=== PATIENT | male | born 1980 | race Caucasian/White ===

== ENCOUNTER 2019-12-21 18:16 | Emergency (ER) | payer OTHER, SELFPAY ==
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
[2019-12-21 18:13] VITALS: BP 141/90; PULSE 95; RESP 16; TEMP 37.1; O2SAT 99
--- NOTE | 2019-12-21 18:25 | ECG_ITS ---
Measurements Intervals [place] Rate: 88 P: 45 SD: 118 QRS: 13 QRSD: 98 T: -8 QT: 344 QTc: 416 Interpretive Statements SINUS RHYTHM WITH SHORT SD INTERVAL BORDERLINE ECG Electronically Signed On 12-22-2019 7:10:43 CDT by Robin Carey D.O.
[2019-12-21 18:44] VITALS: BP 141/85; PULSE 88; RESP 12; O2SAT 97
--- NOTE | 2019-12-21 18:44 | PC.NURSE ---
EDP Rip Miller PA-C at bedside discussing POC.
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
[2019-12-21] MEDS: SODIUM CHLORIDE 0.9% IV 1,000 ML 999 ML IV CONT ×2 (18:59→19:58)
--- NOTE | 2019-12-21 19:15 | PC.NURSE ---
Report taken from JUN Scott. Patient aox4, only complaint at this time is a right sided headache. Paul [facility] aware.
[2019-12-21 19:19] VITALS: BP 130/81; PULSE 83; RESP 16; O2SAT 97
--- NOTE | 2019-12-21 19:28 | PC.NURSE ---
Patient arrived back to room from BREANNA. JESUSITA Miller into room after speaking with Nguyen. Additional scans and blood work ordered. Patient back to radiology.
[2019-12-21 19:50] LABS: Estimated CRCL calculation 74 ml/min; Estimated Glomerular Filt Rate > 60
[2019-12-21 20:30] LABS: Basophils Absolute Auto 0.1 K/mm3 (0.0-0.1); Basophils Percent Auto 0.5 % (0.2-1.2); Eosinophils Absolute Auto 0.1 K/mm3 (0-0.3); Eosinophils Percent Auto 0.9 % (0-4.4); Hematocrit 43.1 % (42.0-52.0); Hemoglobin 14.6 g/dL (14.0-18.0); Immature Granulocyte Absolute 0.11 K/mm3 (0.00-0.031); Immature Granulocyte Percent A 0.7 % (0-0.5); Lymphocytes Absolute Auto 2.54 K/mm3 (0.9-3.2); Lymphocytes Percent Auto 16.3 % (18.3-44.2); Mean Corpuscular HGB Conc 33.9 g/dl (32-36); Mean Corpuscular Hemoglobin 29.7 pg (26-34); Mean Corpuscular Volume 87.8 fl (80-100); Monocytes Absolute Auto 0.8 K/mm3 (0.1-0.6); Monocytes Percent Auto 4.9 % (2.6-8.5); Neutrophils Percent Auto 76.7 % (45.5-73.1); Platelet Count Result 279 k/mm3 (150-375); Red Blood Count 4.91 M/mm3 (4.6-6.20); Red Cell Distribution Width 12.9 % (11.5-14.5); White Blood Count 15.6 K/mm3 (4.5-10.0)
[2019-12-21] MEDS: KETOROLAC 30 MG/ML VIAL (*BKC) IV PUSH (20:35)
[2019-12-21 20:39] LABS: INR 1.1; Prothrombin Time 13.4 Seconds (11.1-14.7)
[2019-12-21 20:42] LABS: Alanine Aminotransferase 16 U/L (4-50); Albumin Level 3.8 g/dL (3.5-5.1); Alkaline Phosphatase 78 U/L (38-126); Aspartate Amino Transferase 20 U/L (17-59); Bilirubin,Total 0.2 mg/dL (0.2-1.3); Blood Urea Nitrogen 17 mg/dL (9-20); Calcium 8.1 mg/dL (8.4-10.2); Carbon Dioxide 24 mmol/L (22-30); Chloride 107 mmol/L (98-107); Estimated CRCL calculation 81 ml/min; Estimated Glomerular Filt Rate > 60; Glucose 90 mg/dL (75-110); Potassium 3.9 mmol/L (3.4-5.0); Sodium 137 mmol/L (137-145)
[2019-12-21 20:43] LABS: Add Urine Microscopic? NO; Appearance Urine Clear (Clear); Bilirubin Urine Negative (Negative); Blood Urine Negative (Negative); Color Urine Straw (Yellow); Glucose Urine UA Negative (Negative); Ketones Urine Negative (Negative); Leukocyte Esterase Ur Negative LEU/UL (Negative); Nitrate Urine Negative (Negative); Protein Urine Negative (Negative); Specific Grav Ur 1.006 (1.001-1.035); Urobilinogen Urine Negative mg/dL (<2.0)
[2019-12-21 21:11] VITALS: BP 117/77; PULSE 81; RESP 18; O2SAT 98
== END 2019-12-21 21:12 | disposition short-term general hospital (02) ==
PROVIDERS: Emergency Medicine Emergency Medical Services; Emergency Provider Emergency Medicine; PCP Family Medicine
DX: S09.90XA Unspecified injury of head, initial encounter (principal); S29.9XXA Unspecified injury of thorax, initial encounter; S39.91XA Unspecified injury of abdomen, initial encounter; V43.52XA Car driver injured in collision with other type car in traffic accident, initial encounter
CPT/HCPCS: 36415; 70450; 71045; 71260; 72125; 72170; 74177; 80053; 81003; 85025; 85610; 85730; 93005; 96361; 96365; 96375; 99285; J0131; J1885; J3360; J7030; Q9967

== ENCOUNTER 2022-11-08 13:46 | Emergency (ER) | payer OTHER, SELFPAY ==
[2022-11-08 13:59] VITALS: BP 124/78; PULSE 95; RESP 18; TEMP 36.9; O2SAT 100
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
== END 2022-11-08 14:35 | disposition home or self-care (01) ==
PROVIDERS: Emergency Provider Nurse Practitioner Family; PCP Family Medicine
DX: L03.811 Cellulitis of head [any part, except face] (principal); F17.200 Nicotine dependence, unspecified, uncomplicated
CPT/HCPCS: 99213; G0463

== ENCOUNTER 2024-05-20 14:00 | Emergency (ER) | payer OTHER, SELFPAY ==
--- NOTE | 2024-05-20 14:30 | ED_ITS ---
HPI - Skin/Abscess/Foreign Bdy General Chief complaint: Skin/Abscess/Foreign Body Stated complaint: spider bite Time Seen by Provider: 05/20/24 15:09 Source: patient, RN notes reviewed and old records reviewed Mode of arrival: ambulatory Limitations: no limitations History of Present Illness HPI narrative: 43-year-old male presents to the [facility] with redness, inflammation to the left mid forearm since yesterday. Patient reports that he was cleaning out his garage on Thursday, noticed small red irritated area yesterday, has doubled in size since. Related Data Home Medications Medication Instructions Recorded Confirmed rosuvastatin 10 mg tablet 10 mg PO DAILY 05/20/24 05/20/24 Allergies Allergy/AdvReac Type Severity Reaction Status Date / Time No Known Allergies Allergy Verified 05/20/24 15:11 Review of Systems Review of Systems: All systems reviewed & are unremarkable except as noted in HPI and below Constitutional: Constitutional: Reports no additional constitutional complaints ENT: Reports system reviewed and no additional complaints, except as documented Cardiovascular: Cardiovascular: Reports no additional cardiovascular complaints, Denies chest pain and Denies dyspnea Respiratory: Respiratory: Reports no additional respiratory complaints, Denies chest congestion, Denies cough and Denies dyspnea Gastrointestinal: Gastrointestinal: Reports no additional gastrointestinal complaints, Denies abdominal pain, Denies nausea and Denies vomiting Musculoskeletal: Musculoskeletal: Reports no additional musculoskeletal complaints Integumentary/Breasts: Skin/Breast: Reports as per HPI [facility] Past Medical History Medical History (Updated 05/21/24 @ 14:43 by Luna Rolon APRN) Brain cyst Surgical History Surgical History History of brain surgery Family History Family History Father Malignant neoplasm of prostate Mother No problems noted. Other Hypertension Social History Social History Smoking status: Current every day smoker Alcohol intake: current Substance use: never Substance use type: does not use Lack of Transportation: No Lack of Food: Never True Current Housing: I Have Housing Concerned About Future Housing: No Difficulty Paying Gas/Electric Bills: No Difficulty Paying for Meds: No Currently Unemployed: No Education: High School Diploma/GED Difficulty w/ Childcare or Family Care: No Living arrangements: with roommate(s) Occupation/Education: occupation Gender identity (if verbalized by the patient): Male Sexual Orientation (if Verbalized by the Patient): Straight or Heterosexual Spiritual care concerns: No Comments At the time of my signature, I reviewed and agree with the nursing past medical, surgical, social, and family history. There is no relevant family history pertinent to the patient complaint. Exam Const: General: cooperative, healthy appearing, comfortable, no acute distress, well developed, alert and well nourished Nutritional Appearance: well nourished Orientation/consciousness: patient oriented x3 Limitations: no limitations HENMT: Head: normal to inspection Ears: hearing grossly normal bilaterally and external ears normal Face/Nose/Sinus: Normal external nose present, normal facial exam and face symmetric Face and sinus: normal facial exam and face symmetric Eyes: General: appearance normal, both eyes and all related structures Alignment and Position: alignment normal Periorbital: periorbital findings normal Neck: Neck: normal visual inspection, full ROM, no lymphadenopathy and no meningeal signs Chest: Chest palpation & inspection: normal inspection of the chest Resp: Effort & Inspection: normal respiratory effort and able to speak in complete sentences Cardio: Rate: regular rate Skin: General skin exam: normal color and no rashes or lesions noted Lesions: no lesions Rashes: no rashes Other: Left scabbed over area center 0.5 cm by 0.5 cm, erythema extended to 3 x 2.5 cm. Area is mildly swollen. Neuro: General: patient oriented x3, gait normal, tone normal, moves all extremities and no meningeal signs Cognition (Neuro): normal cognition Speech: normal speech Gait exam (Neuro): Normal gait present Extrem: General: normal to inspection, full ROM, capillary refill normal and normal gait Left upper extremity: elbow/forearm swelling (Mid forearm, erythema), wrist normal to inspection and normal ROM and hand normal to inspection and normal capillary refill Psych: Appearance: grossly normal and well kempt Mental Status: mental status grossly normal Speech and movement: Normal speech and movement present and Clear speech present Affect: normal affect Attitude: cooperative Course Course Level of Care: Express Care Visit Vital Signs Vital signs: Vital Signs Temperature 97.5 F L 05/20/24 14:32 Pulse Rate 95 05/20/24 14:32 Respiratory Rate 15 05/20/24 14:32 Blood Pressure 139/94 H 05/20/24 14:32 Pulse Oximetry 98 05/20/24 14:32 Oxygen Delivery Room Air 05/20/24 14:32 Temperature 97.5 F L 05/20/24 14:32 Pulse Rate 95 05/20/24 14:32 Respiratory Rate 15 05/20/24 14:32 Blood Pressure 139/94 H 05/20/24 14:32 Pulse Oximetry 98 05/20/24 14:32 Oxygen Delivery Room Air 05/20/24 14:32 Reviewed MDM - Skin/Abscess/Foreign Bdy MDM Narrative Medical decision making narrative: Patient sitting comfortably in exam room. Nontoxic, vitals stable. Patient presents with erythema to the forearm Exam consistent with cellulitis. No streaking. Patient is nontoxic Patient appropriate for outpatient treatment with antibiotics and close follow- up Discussed signs and symptoms ago the emergency room which he verbalized understanding. Discharge instructions reviewed with patient, as well as provided in writing per nursing staff. The instructions also include specific and strict return/GO TO THE ER as well as f/u information. All questions have been answered, and the patient deny any further questions with discharge and discharge plan. Some parts of this dictation were generated by voice recognition software and may contain typographical and/or grammatical inaccuracies. Differential Diagnosis Differential diagnosis: Likely abscess of skin or subcutaneous tissue, cellulitis, insect bites and impetigo Critical Care Time Critical Care Time Critical Care Time: No Discharge Plan Discharge Clinical Impression: Cellulitis Patient Disposition: Home, Self-Care Condition: Stable Instructions: Antibiotic Form, Cellulitis (ED) Additional Instructions: Wash area twice a day with warm soapy water, pat dry. Apply ice as needed it is recommended you apply every 2-3 hours for 15-20 minutes to help with pain and inflammation take Tylenol alternating with ibuprofen as needed for pain take antibiotic as prescribed follow-up with primary care provider for new or worsening symptoms please go directly to the nearest emergency room Patient Language: Belize[place] Prescriptions: New clindamycin HCl 300 mg capsule 300 mg PO TID 7 Days Qty: 21 0RF Rx Instructions: TAKE WITH 150 MG mupirocin 2 % ointment 1 applic topical BID Qty: 15 0RF No Action rosuvastatin 10 mg Tablet 10 mg PO DAILY Follow-up/Referrals: Brock Prince MD [Primary Care Provider] - Stand Alone Forms: Work/School Release IP Time of Disposition: 15:19
[2024-05-20 14:32] VITALS: BP 139/94; PULSE 95; RESP 15; TEMP 36.4; O2SAT 98
== END 2024-05-20 15:22 | disposition home or self-care (01) ==
PROVIDERS: Emergency Provider Nurse Practitioner; PCP Family Medicine
DX: L03.114 Cellulitis of left upper limb (principal); F17.200 Nicotine dependence, unspecified, uncomplicated
CPT/HCPCS: 99213; G0463

== ENCOUNTER 2024-09-17 21:52 | Emergency (ER) | payer OTHER, SELFPAY ==
[2024-09-17 21:53] VITALS: BP 115/94; PULSE 105; RESP 14; TEMP 36.6; O2SAT 99
--- OUTSIDE RECORDS SUMMARY | 2024-09-17 21:54 | XMS_ITS | Clinical Summary ---
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 Name Role Phone Unavailable Primary Care Provider Unavailabl e Social History Tobacco Use Types Packs/Day Years Used Date Smoking Tobacco: Never Assessed Sex and Gender Information Value Date Recorded Sex Assigned at Not on file Legal Sex Male 4:52 PM CDT Gender Identity Not on file Sexual Orientation Not on file Plan of Treatment Health Maintenance Due Date Last Done Comments Colorectal Cancer Screening Colonoscopy (10 Years) 1979 Annual Physical 1982 Hepatitis C 1997 DTaP, Tdap and Td Vaccines ( 1 - Tdap) 1998 Hepatitis B Vaccines (1 of 3 - 19+ 3-dose series) 1998 COVID-19 Vaccine (2023-2 5 season) 2024 Influenza Adult (#1) 2024 HPV Vaccines Aged Out No longer eligi ble based on patient's age to complete this topic Meningococcal B Vaccine Aged Out No l onger eligible based on patient's age to complete this topic Meningococcal Vaccine Aged Out No rochelle emely eligible based on patient's age to complete this topic Pneumococcal Vaccine: Pediat rics (0 to 5 Years) and At-Risk Patients (6 to 64 Years) Aged Out No longer eligible b ased on patient's age to complete this topic RSV Immunizations Under 20 Months Aged Out No longer eligible based on patient's age to complete this topic
--- NOTE | 2024-09-17 22:40 | ED_ITS ---
HPI - Extremity Problem General Chief complaint: Extremity Problem,Nontraumatic Stated complaint: i have an infection in my left knee Time Seen by Provider: 09/17/24 22:27 History of Present Illness HPI Narrative: 44-year-old male presents to the emergency department for redness to his left lower extremity. 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 States since then he has developed surrounding redness, woke up this morning with increasing redness spreading down his leg. He notes that he also had some purulent drainage from the burn site. He denies fever, chills, nausea or vomiting. States he had a Tdap within the past 5 years. Related Data Allergies Allergy/AdvReac Type Severity Reaction Status Date / Time No Known Allergies Allergy Verified 09/17/24 21:57 Review of Systems 2 Review of Systems: All systems reviewed & are unremarkable except as noted in HPI and below PMFSH Past Medical History Medical History (Updated 09/17/24 @ 23:44 by Veronica Bunch PA-C) Brain cyst Surgical History Surgical History History of brain surgery Family History Family History Father Malignant neoplasm of prostate Mother No problems noted. Other Hypertension Social History Social History Smoking status: Current every day smoker Alcohol intake: current Substance use: never Substance use type: does not use Lack of Transportation: No Lack of Food: Never True Current Housing: I Have Housing Concerned About Future Housing: No Difficulty Paying Gas/Electric Bills: No Difficulty Paying for Meds: No Currently Unemployed: No Education: High School Diploma/GED Difficulty w/ Childcare or Family Care: No Living arrangements: with roommate(s) Occupation/Education: occupation Gender identity (if verbalized by the patient): Male Sexual Orientation (if Verbalized by the Patient): Straight or Heterosexual Spiritual care concerns: No Exam 2 Narrative: GENERAL: Well-appearing, well-nourished, and in no acute distress. HEAD: Normocephalic, atraumatic. ENT: Nares clear, no rhinorrhea or epistaxis. Mucous membranes moist. NECK: Supple. CHEST: Clear to auscultation. No respiratory distress. HEART: Regular rate and rhythm. No murmur heard. Normal peripheral pulses. EXTREMITIES: Normal range of motion. No edema. SKIN: 1 cm area of unstageable burn with overlying scab to the left proximal tibia lateral to the tibial tuberosity with scant expressed purulence. No fluctuance or induration. There is a 4 cm x 5 cm area of erythema surrounding the scab, with a fainter erythema and warmth extending distally down the tibia. Patient has full active and passive range of motion of knee, there is no erythema extending over the knee joint. No crepitus or vesicles. DP pulse 2 +. Sensation intact. NEURO: No focal deficits. Alert and oriented x3 Course Vital Signs Vital signs: Vital Signs Temperature 97.9 F 09/17/24 21:53 Pulse Rate 105 H 09/17/24 21:53 Respiratory Rate 14 09/17/24 21:53 Blood Pressure 115/94 H 09/17/24 21:53 Pulse Oximetry 99 09/17/24 21:53 Oxygen Delivery Room Air 09/17/24 21:53 Temperature 97.9 F 09/17/24 21:53 Pulse Rate 105 H 09/17/24 21:53 Respiratory Rate 14 09/17/24 21:53 Blood Pressure 115/94 H 09/17/24 21:53 Pulse Oximetry 99 09/17/24 21:53 Oxygen Delivery Room Air 09/17/24 21:53 MDM - Extremity (Nontraumatic) MDM Narrative Medical decision making narrative: 44-year-old male presents emergency department for redness to his left lower extremity for the past 2 days. Patient burned his left leg on a hot piece of metal while welding at work. Since then he has had progressing surrounding erythema and purulence from the burn site. On arrival to the vitals are stable other than mild tachycardia 105. Patient is afebrile and nontoxic appearing. Exam is significant for the above. Tdap is updated per patient. Given rapidly progressing cellulitis, lab work obtained which shows mild leukocytosis of 10.9, normal chemistries. Pt was given a dose of IV cefazolin. He was offered admission for IV antibiotics but would like to trial outpatient course. Keflex and silver sulfadiazine sent to pharmacy. Advised follow-up with PCP. Return precautions discussed. He is agreeable with the plan verbalized understanding. Discharged in stable condition. Lab Data 09/17/24 22:49 09/17/24 22:49 Labs: Lab Results 09/17/24 Range/Units 22:49 WBC 10.9 H (4.5-10.0) K/mm3 RBC 4.79 (4.6-6.20) M/mm3 Hgb 14.3 (14.0-18.0) g/dL Hct 42.8 (42.0-52.0) % MCV 89.4 (80-100) fl MCH 29.9 (26-34) pg MCHC 33.4 (32-36) g/dl RDW 12.9 (11.5-14.5) % Plt Count 249 (150-375) k/mm3 MPV 8.5 (7.4-10.4) fl Immature Gran % (Auto) 0.6 H (0-0.5) % Neut % (Auto) 59.1 (45.5-73.1) % Lymph % (Auto) 31.5 (18.3-44.2) % [place]barger % (Auto) 5.4 (2.6-8.5) % Eos % (Auto) 2.7 (0-4.4) % Baso % (Auto) 0.7 (0.2-1.2) % Lymph # (Auto) 3.44 H (0.9-3.2) K/mm3 [place]ger # (Auto) 0.6 (0.1-0.6) K/mm3 Eos # (Auto) 0.3 (0-0.3) K/mm3 Baso # (Auto) 0.1 (0.0-0.1) K/mm3 Abs Immat Gran (auto) 0.07 H (0.00-0.031) K/mm3 Absolute Neuts (auto) 6.4 (1.3-6.7) K/mm3 Absolute Nucleated RBC 0.000 (0.0-0.012) K/mm3 Nucleated RBC % 0.0 (0.0-0.2) % Sodium 140 (137-145) mmol/L Potassium 3.7 (3.4-5.0) mmol/L Chloride 105 (98-107) mmol/L Carbon Dioxide 23 (22-30) mmol/L Anion Gap 12 (4-12) mmol/L BUN 11 D (9-20) mg/dL Creatinine 0.95 (0.7-1.3) mg/dL Estim Creat Clear Calc 81 ml/min Estimated GFR > 60 (59 - ) Glucose 105 (65-110) mg/dL Calcium 8.4 (8.4-10.2) mg/dL Discharge Plan Discharge Clinical Impression: Burn Cellulitis Qualifiers: Site of cellulitis: extremity Site of cellulitis of extremity: lower extremity Laterality: left Qualified Code(s): L03.116 - Cellulitis of left lower limb Patient Disposition: Home, Self-Care Condition: Stable Instructions: Antibiotic Form, Cellulitis (ED), Superficial Burn (DC) Additional Instructions: Your evaluated in the emergency department for a skin infection. Please take antibiotics and use the cream as directed. Take Tylenol ibuprofen as needed for pain. Follow-up with your primary care provider. Return to the emergency department if you develop worsening redness or spreading redness, fever, vomiting or other concerning symptoms. Patient Language: Slovenian Prescriptions: New ibuprofen 800 mg tablet 800 mg PO TID PRN (Reason: pain) Qty: 20 0RF cephalexin 500 mg capsule 500 mg PO Q6H Qty: 28 0RF silver sulfadiazine 1 % cream 1 applic topical BID Qty: 20 0RF Rx Instructions: apply a 1.5 mm thickness acetaminophen 500 mg capsule 500 mg PO Q6H PRN (Reason: pain) Qty: 14 0RF Follow-up/Referrals: Borck Prince MD [Primary Care Provider] -
[2024-09-17] MEDS: ceFAZolin 1 GM/NS 50 ML 1 GM/50 ML BAG IVPB (22:49)
[2024-09-17 22:56] LABS: Basophils Absolute Auto 0.1 K/mm3 (0.0-0.1); Basophils Percent Auto 0.7 % (0.2-1.2); Eosinophils Absolute Auto 0.3 K/mm3 (0-0.3); Eosinophils Percent Auto 2.7 % (0-4.4); Hematocrit 42.8 % (42.0-52.0); Hemoglobin 14.3 g/dL (14.0-18.0); Immature Granulocyte Absolute 0.07 K/mm3 (0.00-0.031); Immature Granulocyte Percent A 0.6 % (0-0.5); Lymphocytes Absolute Auto 3.44 K/mm3 (0.9-3.2); Lymphocytes Percent Auto 31.5 % (18.3-44.2); Mean Corpuscular HGB Conc 33.4 g/dl (32-36); Mean Corpuscular Hemoglobin 29.9 pg (26-34); Mean Corpuscular Volume 89.4 fl (80-100); Mean Platelet Volume 8.5 fl (7.4-10.4); Monocytes Absolute Auto 0.6 K/mm3 (0.1-0.6); Monocytes Percent Auto 5.4 % (2.6-8.5); Neutrophils Absolute Auto 6.4 K/mm3 (1.3-6.7); Neutrophils Percent Auto 59.1 % (45.5-73.1); Platelet Count Result 249 k/mm3 (150-375); Red Blood Count 4.79 M/mm3 (4.6-6.20); Red Cell Distribution Width 12.9 % (11.5-14.5); White Blood Count 10.9 K/mm3 (4.5-10.0)
--- OUTSIDE RECORDS SUMMARY | 2024-09-17 22:56 | XMS_ITS | Clinical Summary ---
Author Organization [facility] Address [address] [place] [address] Care Team Providers Care Geospatial Technologist Name Role Phone Unavailable Primary Care Provider [...]
[2024-09-17 23:12] LABS: Anion Gap 12 mmol/L (4-12); Blood Urea Nitrogen 11 mg/dL (9-20); Calcium 8.4 mg/dL (8.4-10.2); Carbon Dioxide 23 mmol/L (22-30); Chloride 105 mmol/L (98-107); Estimated CRCL calculation 81 ml/min; Estimated Glomerular Filt Rate > 60; Glucose 105 mg/dL (65-110); Potassium 3.7 mmol/L (3.4-5.0); Sodium 140 mmol/L (137-145)
[2024-09-17 23:57] VITALS: BP 122/88; PULSE 96; RESP 15; O2SAT 98
== END 2024-09-18 | disposition home or self-care (01) ==
PROVIDERS: Emergency Provider Physician Assistant; PCP Family Medicine
DX: L03.116 Cellulitis of left lower limb (principal); T24.032A Burn of unspecified degree of left lower leg, initial encounter; T31.0 Burns involving less than 10% of body surface; F17.210 Nicotine dependence, cigarettes, uncomplicated; X18.XXXA Contact with other hot metals, initial encounter
CPT/HCPCS: 36415; 80048; 85025; 96365; 99284; J0690

== ENCOUNTER 2025-03-01 08:03 | Emergency (ER) | payer OTHER, SELFPAY ==
--- OUTSIDE RECORDS SUMMARY | 2025-03-01 08:08 | XMS_ITS | Clinical Summary ---
Author Organization [facility] Address [address] [place] [address] Care Team Providers Care Doctor Of Nursing Practice Name Role Phone Unavailable Primary Care Provider [...] of 3 - 19+ 3-dose series) 1998 HPV Vaccines (1 - 3-dose SCD M series) 2006 COVID-19 Vaccine (2023-2 5 season) 2025 Meningococcal B Vaccine Aged Out No l onger eligible based on patient's age to complete this topic Meningococcal Vaccine Aged Out No rochelle emely eligible based on patient's age to complete this topic Pneumococcal Vaccine: Pediat rics (0 to 5 Years) and At-Risk Patients (6 to 49 Years) Aged Out No longer eligible b ased on patient's age to complete this topic RSV Immunizations Under 20 Months Aged Out No longer eligible based on patient's age to complete this topic
[2025-03-01 08:09] VITALS: BP 136/91; PULSE 98; RESP 16; TEMP 36.4; O2SAT 98
--- NOTE | 2025-03-01 08:11 | ED_ITS ---
HPI - Skin/Abscess/Foreign Bdy General Chief complaint: Skin/Abscess/Foreign Body Stated complaint: infection/lower lip/chin region Time Seen by Provider: 03/01/25 08:11 Source: patient Mode of arrival: ambulatory Limitations: no limitations History of Present Illness HPI narrative: 44 yo M presents with redness, swelling, drainage to face. Pt shaved face 1 wk ago. The next day he went to [employer]. The following day he began to have pimple like spot to chin. Has been getting progressively worse. Afebrile. Had 2 doxycycline capsules left over from old script that he took yesterday. All systems reviewed and negative except as noted above. Related Data Allergies Allergy/AdvReac Type Severity Reaction Status Date / Time No Known Allergies Allergy Verified 03/01/25 08:12 [facility] Past Medical History Medical History (Updated 03/01/25 @ 08:23 by Geraldine Ghosh NP) Brain cyst Surgical History Surgical History History of brain surgery Family History Family History Father Malignant neoplasm of prostate Mother No problems noted. Other Hypertension Social History Social History Smoking status: Current every day smoker Alcohol intake: current Substance use: never Substance use type: does not use Lack of Transportation: No Lack of Food: Never True Current Housing: I Have Housing Concerned About Future Housing: No Difficulty Paying Gas/Electric Bills: No Difficulty Paying for Meds: No Currently Unemployed: No Education: High School Diploma/GED Difficulty w/ Childcare or Family Care: No Living arrangements: with roommate(s) Occupation/Education: occupation Gender identity (if verbalized by the patient): Male Sexual Orientation (if Verbalized by the Patient): Straight or Heterosexual Spiritual care concerns: No Comments At time of signature, agree with nursing past medical, surgical, social and family history. There is no relevant family history pertinent to the presenting complaint. Exam Narrative: GENERAL: This is a well-nourished, well-developed patient, in no apparent distress. HEAD: normocephalic, atraumatic. EYES: PERRL. Sclera clear/white. Vision is grossly intact. EARS: External ears normal NOSE: External nose normal NECK: Neck supple, non-tender without lymphadenopathy, masses or thyromegaly. CARDIOVASCULAR: Regular rate and rhythm without murmurs, gallops, or rubs. RESPIRATORY: Clear to auscultation. Breath sounds equal bilaterally. No wheezes, rales, or rhonchi. SKIN: warm, Dry, intact , good texture and turgor. erythema, swelling to chin approx. 3x5cm. clear drainage. no fluctuance. NEURO: awake, alert, and oriented to person, place and time. There were no obvious focal neurologic abnormalities. EXTREMITIES: No joint tenderness, effusion, or edema noted. Course Course Level of Care: Express Care Visit Vital Signs Vital signs: Vital Signs Temperature 36.4 C L 03/01/25 08:09 Pulse Rate 98 03/01/25 08:09 Respiratory Rate 16 03/01/25 08:09 Blood Pressure 136/91 H 03/01/25 08:09 Pulse Oximetry 98 03/01/25 08:09 Oxygen Delivery Room Air 03/01/25 08:09 Temperature 36.4 C L 03/01/25 08:09 Pulse Rate 98 03/01/25 08:09 Respiratory Rate 16 03/01/25 08:09 Blood Pressure 136/91 H 03/01/25 08:09 Pulse Oximetry 98 03/01/25 08:09 Oxygen Delivery Room Air 03/01/25 08:09 Reviewed MDM - Skin/Abscess/Foreign Bdy MDM Narrative Medical decision making narrative: will treat facial cellulitis with clindamycin. pt is well appearing, nontoxic. Differential Diagnosis Differential diagnosis: Likely abscess of skin or subcutaneous tissue, cellulitis, insect bites and impetigo Discharge Plan Discharge Clinical Impression: Cellulitis of face Patient Disposition: Home Condition: Stable Instructions: Antibiotic Form, Cellulitis (ED) Additional Instructions: Take antibiotic as prescribed until gone. Take with full glass of water. Do not take right before bed. Keep affected area clean and dry. Wash at least twice a day with soap and water. See your doctor if not improving. Patient Language: Welsh Prescriptions: New clindamycin HCl [Cleocin HCl] 300 mg capsule 300 mg PO QID 7 Days Qty: 28 0RF mupirocin [Centany] 2 % ointment 1 applic topical BID 7 Days Qty: 22 0RF Follow-up/Referrals: Brock Prince MD [Primary Care Provider, Family Practice] Time of Disposition: 08:25
== END 2025-03-01 08:29 | disposition home or self-care (01) ==
PROVIDERS: Emergency Provider Nurse Practitioner Family; PCP Family Medicine
DX: L03.211 Cellulitis of face (principal); F17.200 Nicotine dependence, unspecified, uncomplicated
CPT/HCPCS: 99213; G0463